=== PATIENT | male | born 1990 | race American Indian/Alaskan Native ===

== ENCOUNTER 2018-07-11 13:13 | Emergency (ER) | payer SELFPAY ==
[2018-07-11] MEDS ORDERED: SUBLIMAZE IV ONE (13:19)
--- NOTE | 2018-07-11 13:21 | Emergency Department Report ---
<LOKESH AGUILAR - Last Filed: 07/11/18 17:47> ED Trauma HPI - General Chief Complaint: Fall Stated Complaint: FELL OFF LADDER Time Seen by Provider: 07/11/18 13:18 - History of Present Illness Allergies/Adverse Reactions: Allergies No Known Allergies Allergy (Verified 07/11/18 14:26) Home Medications: Ambulatory Orders Acetaminophen [Tylenol Arthritis] 650 mg PO Q6HR PRN #30 tablet.er 07/11/18 Ibuprofen [Motrin] 600 mg PO Q8H PRN #30 tablet 07/11/18 oxyCODONE [Roxicodone] 5 mg PO Q6HR PRN #15 tablet 07/11/18 ED Past Medical Hx - Medications Home Medications: Home Medications Medication Instructions Recorded Confirmed Last Taken Type Acetaminophen [Tylenol Arthritis] 650 mg PO Q6HR PRN #30 tablet.er 07/11/18 Unknown Rx Ibuprofen [Motrin] 600 mg PO Q8H PRN #30 tablet 07/11/18 Unknown Rx oxyCODONE [Roxicodone] 5 mg PO Q6HR PRN #15 tablet 07/11/18 Unknown Rx ED Course - Reevaluation(s) Reevaluation #3: 07/11/18 17:47 UA without gross hematuria and therefore patient will be discharged ED Medical Decision Making - Lab Data Result diagrams: 07/11/18 13:15 07/11/18 13:15 Lab Results 07/11/18 07/11/18 07/11/18 Range/Units 13:15 13:15 13:15 WBC 6.6 (4.5-11.0) K/mm3 RBC 4.64 (3.65-5.03) M/mm3 Hgb 13.6 (11.8-15.2) gm/dl Hct 40.8 (35.5-45.6) % MCV 88 (84-94) fl MCH 29 (28-32) pg MCHC 33 (32-34) % RDW 14.8 (13.2-15.2) % Plt Count 195 (140-440) K/mm3 PT 12.9 (12.2-14.9) Sec. INR 0.93 (0.87-1.13) APTT 29.5 (24.2-36.6) Sec. Sodium 142 (137-145) mmol/L Potassium 3.6 (3.6-5.0) mmol/L Chloride 103.3 (98-107) mmol/L Carbon Dioxide 25 (22-30) mmol/L Anion Gap 17 mmol/L BUN 13 (9-20) mg/dL Creatinine 1.1 (0.8-1.5) mg/dL Estimated GFR > 60 ml/min BUN/Creatinine Ratio 12 % Glucose 109 H (75-100) mg/dL Calcium 9.1 (8.4-10.2) mg/dL Magnesium 2.00 (1.7-2.3) mg/dL Total Creatine Kinase 288 H (55-170) units/L Urine Color (Yellow) Urine Turbidity (Clear) Urine pH (5.0-7.0) Ur Specific [place] (1.003-1.030) Urine Protein (Negative) mg/dL Urine Glucose (UA) (Negative) mg/dL Urine Ketones (Negative) mg/dL Urine Blood (Negative) Urine Nitrite (Negative) Urine Bilirubin (Negative) Urine Urobilinogen (<2.0) mg/dL Ur Leukocyte Esterase (Negative) Urine WBC (Auto) (0.0-6.0) /HPF Urine RBC (Auto) (0.0-6.0) /HPF Urine Mucus /HPF 07/11/18 Range/Units 16:35 WBC (4.5-11.0) K/mm3 RBC (3.65-5.03) M/mm3 Hgb (11.8-15.2) gm/dl Hct (35.5-45.6) % MCV (84-94) fl MCH (28-32) pg MCHC (32-34) % RDW (13.2-15.2) % Plt Count (140-440) K/mm3 PT (12.2-14.9) Sec. INR (0.87-1.13) APTT (24.2-36.6) Sec. Sodium (137-145) mmol/L Potassium (3.6-5.0) mmol/L Chloride (98-107) mmol/L Carbon Dioxide (22-30) mmol/L Anion Gap mmol/L BUN (9-20) mg/dL Creatinine (0.8-1.5) mg/dL Estimated GFR ml/min BUN/Creatinine Ratio % Glucose (75-100) mg/dL Calcium (8.4-10.2) mg/dL Magnesium (1.7-2.3) mg/dL Total Creatine Kinase (55-170) units/L Urine Color Yellow (Yellow) Urine Turbidity Clear (Clear) Urine pH 6.0 (5.0-7.0) Ur Specific [place] 1.026 (1.003-1.030) Urine Protein <15 mg/dl (Negative) mg/dL Urine Glucose (UA) Neg (Negative) mg/dL Urine Ketones Neg (Negative) mg/dL Urine Blood Neg (Negative) Urine Nitrite Neg (Negative) Urine Bilirubin Neg (Negative) Urine Urobilinogen < 2.0 (<2.0) mg/dL Ur Leukocyte Esterase Neg (Negative) Urine WBC (Auto) 1.0 (0.0-6.0) /HPF Urine RBC (Auto) 2.0 (0.0-6.0) /HPF Urine Mucus 1+ /HPF ED Disposition Clinical Impression: Fall, Back pain Disposition: TO HOME OR SELFCARE Condition: Stable Instructions: Acute Low Back Pain (ED), Back Pain (ED) Additional Instructions: Pain typically gets worse before it gets better after a fall. Rest, and avoid heavy lifting, and avoid strenuous physical activities. Take pain medications as directed, and follow up with a primary care doctor or orthopedist for back pain within the next 7 days. Return to the ER right away with new pain, worsened pain, migration of pain, projectile vomiting, change in mental status, confusion, inability to speak, inability to breathe, extremity weakness, numbness, bladder or bowel retention or incontinence. Prescriptions: Acetaminophen [Tylenol Arthritis] 650 mg PO Q6HR PRN #30 tablet.er PRN Reason: Pain Ibuprofen [Motrin] 600 mg PO Q8H PRN #30 tablet PRN Reason: Pain oxyCODONE [Roxicodone] 5 mg PO Q6HR PRN #15 tablet PRN Reason: Pain Referrals: [facility] [Provider Group] - 3-5 Days [facility] [Provider Group] - 3-5 Days <VALERIE CANO - Last Filed: 07/12/18 10:16> ED Trauma HPI - General Source: patient, RN notes reviewed Exam Limitations: physical impairment - History of Present Illness Initial Comments: This is a 28-year-old gentleman who is not known to this provider previously, who presents as a code trauma. Patient fell around 8 feet off of a ladder, onto his back, and onto his head. Prior to the fall, the patient endorses no symptoms. After the fall, the patient complains of back pain. Pain is sharp, increases with palpation and decreases with rest. On primary survey: Airway: Patent and intact Breath sounds: Clear to auscultation bilaterally Circulation: 2+ pulses in the upper, lower extremities bilaterally. Appropriate blood pressure. Disability: GCS of 15. Midline cervical spine tenderness. Exposure: No obvious penetrating injuries. No obvious foreign bodies. On secondary survey, no obvious penetrating injuries or foreign bodies noted. FAST exam was negative for acute disease. X-ray of the chest, pelvis negative for acute disease. CT scan of the brain, cervical, thoracic, lumbar spine pending. Patient felt improved after fentanyl. Occurred: just prior to arrival Pain Location: head, neck, back Method of Injury: direct blow, fall Modifying Factors: improves with: other (increases with palpation, range of motion, decreases with rest) Loss of Consciousness: no loss of consciousness Associated Symptoms (Fall): headache, neck pain. denies: abdominal pain, chest pain, confusion, dizziness, lightheadedness, muscle spasms, nausea/vomiting, ringing in ears, seizures, shortness of breath, slurred speech, trouble walking, vision changes ED Review of Systems ROS: Stated complaint: FELL OFF LADDER Other details as noted in HPI Constitutional: denies: fever Eyes: denies: eye discharge ENT: denies: epistaxis Respiratory: denies: cough Cardiovascular: denies: chest pain Gastrointestinal: denies: abdominal pain Genitourinary: denies: frequency Musculoskeletal: back pain Skin: denies: lesions Neurological: denies: numbness, paresthesias, confusion ED Physical Exam - General Limitations: Physical Limitation General appearance: alert, anxious - Head Head exam: Present: atraumatic, normocephalic - Eye Eye exam: Present: normal appearance, PERRL, EOMI, other (visual acuity intact to finger counting, color perception, reading at a close distance). Absent: nystagmus - ENT ENT exam: Present: normal exam, normal orophraynx, mucous membranes moist, normal external ear exam - Neck Neck exam: Present: normal inspection, tenderness - Respiratory Respiratory exam: Present: normal lung sounds bilaterally. Absent: respiratory distress - Cardiovascular Cardiovascular Exam: Present: regular rate, normal rhythm, normal heart sounds. Absent: bradycardia, tachycardia, irregular rhythm, systolic murmur, diastolic murmur, rubs, gallop - GI/Abdominal GI/Abdominal exam: Present: soft. Absent: distended, tenderness, guarding, rebound, rigid, pulsatile mass - Rectal Rectal exam: Present: normal inspection, normal rectal tone, other (chaperoned by nurse PRITESH OLIVO) - Extremities Exam Extremities exam: Present: normal inspection, full ROM, other (2+ pulses noted in the bilateral upper, lower extremities. Compartments soft. No long bony tenderness. The pelvis is stable.). Absent: pedal edema, joint swelling, calf tenderness - Back Exam Back exam: Present: normal inspection, full ROM, paraspinal tenderness, vertebral tenderness - Neurological Exam Neurological exam: Present: alert, oriented X3, other (Extraocular movements intact. Tongue midline. No facial droop. Facial sensation intact to light touch in the V1, V2, V3 distribution bilaterally. 5 and 5 strength in 4 extremities.. Sensation is intact to light touch in 4 extremities.). Absent: motor sensory deficit - Psychiatric Psychiatric exam: Present: anxious - Skin Skin exam: Present: warm, dry, intact, normal color. Absent: rash ED Course Vital Signs 07/11/18 07/11/18 07/11/18 13:23 14:06 18:04 Temperature 98.1 F Pulse Rate 73 64 89 Respiratory 19 16 18 Rate Blood Pressure 144/76 Blood Pressure 126/65 122/71 [Right] O2 Sat by Pulse 99 99 99 Oximetry - Reevaluation(s) Reevaluation #1: 07/11/18 15:30 Differential diagnosis, including but not limited to: Intracranial injury, spinal injury, mechanical fall Assessment and plan: 28-year-old gentleman status post fall off of a ladder. He is afebrile with reassuring vital signs. He is neurologically intact at this time. Pain medicine has been given. Screening urinalysis is pending. CT scan interpretation is pending at this time. Reevaluation #2: 07/11/18 15:37 Patient reports feeling much improved. Awaiting CT scan interpretation. Counseled patient to expect to be sore over the next few days. 07/11/18 15:38 07/11/18 15:51 CT scan of the brain, cervical spine, thoracic spine, lumbar spine negative for acute traumatic disease. Incidental disc findings noted, discussed this with patient and he verbalized understanding. Patient not having lower extremity weakness or numbness, not having seeming in back pain at this time, therefore doubt traumatic herniation. Cervical collar is cleared on my repeat examination, and the patient is currently drinking ice chips, water. Dr. Aguilar will follow up on the urinalysis. ED Medical Decision Making - Lab Data Result diagrams: 07/11/18 13:15 07/11/18 13:15 Critical care attestation.: If time is entered above; I have spent that time in minutes in the direct care of this critically ill patient, excluding procedure time. ED Disposition Is pt being admited?: No Does the pt Need Aspirin: No
[2018-07-11 13:34] LABS: INR 0.93 (0.87-1.13)
[2018-07-11 13:35] LABS: Partial Thromboplastin Time 29.5 Sec. (24.2-36.6)
[2018-07-11 13:37] LABS: BUN/Creatinine Ratio 12; Blood Urea Nitrogen 13 mg/dL (9-20); Calcium 9.1 mg/dL (8.4-10.2); Hemolysis Index 10
[2018-07-11 13:38] LABS: Hematocrit 40.8 % (35.5-45.6); Hemoglobin 13.6 gm/dl (11.8-15.2); Mean Corpuscular HGB Conc 33 % (32-34); Mean Corpuscular Volume 88 fl (84-94); Platelet Count 195 K/mm3 (140-440); Red Blood Count 4.64 M/mm3 (3.65-5.03); Red Cell Distribution Width 14.8 % (13.2-15.2)
--- NOTE | 2018-07-11 14:06 | XRay Report ---
AP CHEST: HISTORY: chest pain AP view of the chest demonstrates a normal mediastinal and cardiac contour with clear lungs and normal bony and soft tissue structures. IMPRESSION: Unremarkable AP chest.
--- NOTE | 2018-07-11 14:06 | XRay Report ---
AP PELVIS: HISTORY: pain. AP view of the pelvis shows normal pelvic contour and soft tissues. The hips are symmetric and within normal limits as are the sacroiliac joints. IMPRESSION: Unremarkable pelvis.
--- NOTE | 2018-07-11 15:32 | Cat Scan Report ---
CT HEAD WITHOUT CONTRAST: HISTORY: Pain after fall. TECHNIQUE: Sequential 2.5mm CT images. COMPARISON: none. FINDINGS: Cerebral Parenchyma: Within normal limits. Cerebellum: Within normal limits. Brainstem: Within normal limits. Ventricles: Normal. Sella: Normal. Extra-axial spaces: Normal. Basal Cisterns: Normal. Intracranial Hemorrhage: None. Midline Shift: None. Calvarium: Normal. Sinuses: Normal. Mastoid Air Cells: Normal. Visualized Orbits: Normal. IMPRESSION: Cranial CT scan within normal limits.
--- NOTE | 2018-07-11 15:33 | Cat Scan Report ---
CT SCAN OF THE CERVICAL SPINE: HISTORY: Neck pain after fall. TECHNIQUE: Contiguous 1.25 mm axial images of the cervical spine were obtained. Sagittal and coronal reformatted images. FINDINGS: There is normal alignment of the cervical spine. The body, pedicles and posterior ligaments appear normal. No evidence of fracture or subluxation is seen. The spinal canal appears normal. The prevertebral soft tissues appear normal. IMPRESSION: Unremarkable CT of the cervical spine. No acute process is noted.
--- NOTE | 2018-07-11 15:41 | Cat Scan Report ---
CT SCAN OF THE THORACIC SPINE: HISTORY: Back pain after fall. TECHNIQUE: Contiguous 1.25 mm axial images of the thoracic spine were obtained. Sagittal and coronal reformatted images. FINDINGS: There is normal alignment of the thoracic spine. The body, pedicles and posterior ligaments appear normal. The posterior ribs are intact. No evidence of fracture or subluxation is seen. The spinal canal appears normal. The paravertebral soft tissues appear normal. IMPRESSION: Unremarkable CT of the thoracic spine. No acute process is noted.
--- NOTE | 2018-07-11 15:43 | Cat Scan Report ---
CT SCAN OF THE LUMBAR SPINE: HISTORY: Back pain after fall. TECHNIQUE: Contiguous 1.25 mm axial images of the lumbar spine were obtained. Sagittal and coronal reformatted images. FINDINGS: There is normal alignment of the lumbar spine. The body, pedicles and posterior ligaments appear normal. No evidence of fracture or subluxation is seen. Although intraspinal contents can be obscured on CT, there appear to be prominent posterior bulging discs at L3-4 and L4-5. Mild spinal canal narrowing to be present at these levels. The paravertebral soft tissues are unremarkable IMPRESSION: No evidence for acute bony injury or unstable injury. Prominent posterior bulging discs are suspected at L3-4 and L4-5. I suppose these could represent acute herniations. Please correlate with the patient.
[2018-07-11 17:28] LABS: Bilirubin,Urine NEG (Negative); Blood,Urine NEG (Negative); Color,Urine Yellow (Yellow); Mucus,Urine 1+ /HPF; Protein,Urine <15 mg/dL mg/dL (Negative); Urobilinogen,Urine < 2.0 mg/dL (<2.0)
[2018-07-11 18:05] VITALS: BP 122/71
== END 2018-07-11 18:03 | disposition home or self-care (01) ==
LOC: ED 13:13
DX: M54.9 Dorsalgia, unspecified (principal); F41.9 Anxiety disorder, unspecified; R51 Headache; W11.XXXA Fall on and from ladder, initial encounter; Y93.89 Activity, other specified; Y92.89 Other specified places as the place of occurrence of the external cause; Y99.8 Other external cause status
CPT/HCPCS: 36415; 70450; 71045; 72125; 72128; 72131; 72170; 80048; 81001; 82550; 83735; 85027; 85610; 85730; 96374